=== PATIENT | male | born 1955 | race Two or more races ===

== ENCOUNTER 2019-05-10 00:18 | Inpatient (IN) | payer MEDICAID ==
[~2019-05-10] VITALS: Ht 167.6 cm; Wt 67.4 kg
[2019-05-10] MEDS ORDERED: LISI-661 PO (00:40)
[2019-05-10] MEDS ORDERED: AMLO2.5T4 PO (00:40)
[2019-05-10] MEDS ORDERED: METF-960 PO (00:40)
[2019-05-10] MEDS ORDERED: GABA-531 PO (00:44)
[2019-05-10] MEDS ORDERED: CHLO25 PO (00:44)
[2019-05-10 00:56] LABS: HEMATOCRIT 35.3 % (41-53); HEMOGLOBIN 11.5 g/dL (13.5-17.5); MEAN CORPUSCULAR HEMOGLOBIN 28.1 pg (26.0-34.0); MEAN CORPUSCULAR HGB CONC 32.7 G/dL (31.0-37.0); MEAN CORPUSCULAR VOLUME 86 fL (80-100); PLATELET COUNT (AUTO) 100 K/uL (150-450); RED BLOOD CELL COUNT(AUTO) 4.11 MIL/uL (4.50-5.90); RED CELL DISTRIBUTION WIDTH 14.3 % (11.5-14.5)
[2019-05-10 01:05] LABS: ALANINE AMINOTRANSFERASE 24 U/L (12-78); ALBUMIN 2.7 g/dL (3.4-5.0); ALKALINE PHOSPHATASE 149 U/L (46-116); ANION GAP 19 mmol/L (8-16); ASPARTATE AMINOTRANSFERASE 40 U/L (15-37); BILIRUBIN,TOTAL 0.8 mg/dL (0.1-1.0); CARBON DIOXIDE 18 mmol/L (22-29); CHLORIDE 90 mmol/L (98-107); CREATININE 6.74 mg/dL (0.60-1.30); GLOMERULAR FILTR. RATE CALC 8 mL/min (>60); POTASSIUM 5.8 mmol/L (3.5-5.1); SODIUM SERUM 127 mmol/L (136-145); TOTAL PROTEIN, SERUM 6.6 g/dL (6.4-8.2); UREA NITROGEN, BLOOD 65 mg/dL (7-18)
[2019-05-10 01:07] LABS: GLUCOSE,RANDOM 544 mg/dL (70-110)
[2019-05-10 01:09] LABS: BAND NEUTROPHILS % (MANUAL) 9 % (0-5); LYMPHOCYTES % (MANUAL) 3 % (22-44); MONOCYTES % (MANUAL) 1 % (2-9); SEGMENTED NEUTROPHILS % 87 % (40-70)
[2019-05-10 01:10] LABS: PLATELET MORPHOLOGY COMMENT LARGE PLTS PRESENT
[2019-05-10 01:15] LABS: B-TYPE NATRIURETIC PEPTIDE 378 pg/mL (0-100)
[2019-05-10 01:45] LABS: ACETONE,BLOOD NEGATIVE (NEGATIVE)
[2019-05-10] MEDS ORDERED: INSULIN REGULAR, HUMAN 100 UNITS/ML IVP ONE ×2 (01:45→06:00)
[2019-05-10] MEDS ORDERED: SODIUM CHLORIDE 0.9% 2,000 ML IV ONE (01:45)
[2019-05-10 02:01] LABS: APPEARANCE,URINE CLOUDY (CLEAR); BILIRUBIN,URINE PRELIM. POSITIVE (NEGATIVE); GLUCOSE, URINE (UA) 500 mg/dL (NEGATIVE); KETONES,URINE TRACE mg/dL (NEGATIVE); LEUKOCYTE ESTERASE ,URINE MODERATE (NEGATIVE); NITRATE,URINE NEGATIVE (NEGATIVE); OCCULT BLOOD,URINE LARGE (NEGATIVE); PROTEIN,URINE SEE CONFIRM (NEGATIVE); UROBILINOGEN,URINE 0.2 mg/dL (<=1.0)
[2019-05-10 02:02] LABS: ABG A-A DIFF O2 69.8 mmHg (10-20.0); ABG BASE EXCESS -8.4 mmol/L (-2.0-3.0); ABG CARBOXYHEMOGLOBIN 0.2 % (0.0-1.5); ABG HCO3 18.8 mmol/L (22.0-26.0); ABG METHEMOGLOBIN 0.3 % (0.0-1.5); ABG OXYGEN CONTENT 15.7 mL/dL (15.0-23.0); ABG OXYGEN SATURATION 97.4 % (95.0-98.0); ABG OXYHEMOGLOBIN 96.9 % (94.0-100.0); ABG PCO2 26 mmHg (35-45); ABG PH 7.406 (7.35-7.450); ABG TOTAL HEMOGLOBIN 11.4 G/dL (12.0-18.0); PO2, ARTERIAL BG 98.3 mmHg (79.0-87.0); SOURCE, BLOOD GAS ARTERIAL; TEMPERATURE, FAHRENHEIT, BG 99.7 FAHREN (96.0-98.6)
[2019-05-10 02:03] LABS: SITE, BLOOD GAS LFT RADIAL
[2019-05-10 02:04] LABS: O2 DEVICE,BLOOD GAS CANNULA (ROOM AIR)
[2019-05-10 02:07] LABS: AMPHET/METH SCREEN,URINE NEGATIVE (NEGATIVE); BARBITURATE SCREEN, URINE NEGATIVE (NEGATIVE); BENZODIAZEPINES SCREEN,URINE NEGATIVE (NEGATIVE); CANNABINOID SCREEN,URINE NEGATIVE (NEGATIVE); COCAINE SCREEN,URINE NEGATIVE (NEGATIVE); METHADONE SCREEN, URINE NEGATIVE (NEGATIVE); OPIATE SCREEN,URINE NEGATIVE (NEGATIVE); PHENCYCLIDINE SCREEN,URINE NEGATIVE (NEGATIVE)
[2019-05-10 02:08] LABS: BACTERIA,URINE Moderate /HPF (None Seen); WBC,URINE 51-100 /HPF (0-5)
[2019-05-10 02:09] LABS: SQUAMOUS EPITHELIAL CELL,UR Rare /LPF (None Seen); SULFOSALICYLIC ACID,URINE 1+ (Negative)
[2019-05-10 02:28] LABS: LACTIC ACID 6.8 mmol/L (0.4-2.0)
[2019-05-10] MEDS ORDERED: CefTRIAXone 1 GM/DEXTROSE 50 ML IV ONE (02:45)
[2019-05-10] MEDS ORDERED: ONDANSETRON HCL 4 MG/2 ML VIAL IVP PRN ×2 (03:00→07:15)
[2019-05-10] MEDS ORDERED: 0.9% SODIUM CHLORIDE 10 ML SYRINGE IVP PRN (03:00)
[2019-05-10 03:45] LABS: GLUCOSE,POINT OF CARE 474 MG/DL (70-110)
[2019-05-10] MEDS: ACETAMINOPHEN 325 MG TABLET PO PRN ×2 (04:25→09:58)
[2019-05-10] MEDS ORDERED: SODIUM CHLORIDE 0.9% 1,000 ML IV ONE ×2 (05:00→07:15)
[2019-05-10] MEDS ORDERED: AZTREONAM 1 GM in DEXTROSE 5%-WATER 50 ML IV ONE (05:00)
[2019-05-10] MEDS ORDERED: ACETAMINOPHEN 500 MG TABLET PO ONE (05:15)
[2019-05-10 06:02] LABS: CREATININE 6.01 mg/dL (0.60-1.30); POTASSIUM 5.2 mmol/L (3.5-5.1)
[2019-05-10 06:06] LABS: GLUCOSE,POINT OF CARE 432 MG/DL (70-110)
[2019-05-10] MEDS ORDERED: INSULIN LISPRO 100 UNITS/ML SQ PRN ×2 (07:15→12:30)
[2019-05-10] MEDS ORDERED: ZOLPIDEM TARTRATE 5 MG TABLET PO PRN (07:15)
[2019-05-10] MEDS ORDERED: DEXTROSE 50%-WATER 25 GM/50 ML SYRINGE IVP PRN ×3 (07:15→15:45)
[2019-05-10] MEDS ORDERED: ACETAMINOPHEN 325 MG TABLET PO PRN (07:15)
[2019-05-10] MEDS ORDERED: SODIUM POLYSTYRENE SULFONATE 15 GM/60 ML SUSPENSION BOTTLE PO ONE (07:15)
[2019-05-10] MEDS ORDERED: MAGNESIUM HYDROXIDE SUSPENSION 30 ML UDCUP PO PRN (07:15)
[2019-05-10] MEDS ORDERED: BISACODYL 10 MG RECTAL RECTAL SUPPOSITORY PR PRN (07:15)
[2019-05-10] MEDS ORDERED: HydrALAZINE HCL 20 MG/ML VIAL IVP PRN (07:15)
[2019-05-10] MEDS ORDERED: HYDROCODONE/ACETAMINOPHEN 5-325 MG TABLET PO PRN (07:15)
[2019-05-10 07:30] LABS: GLUCOSE,POINT OF CARE 396 MG/DL (70-110)
[2019-05-10] MEDS: HEPARIN SODIUM,PORCINE 5,000 UNITS/ML VIAL SQ SCH ×2 (08:00→16:00)
[2019-05-10] MEDS ORDERED: CARVEDILOL 6.25 MG TABLET PO SCH (09:00)
[2019-05-10 09:17] LABS: ABG A-A DIFF O2 129.1 mmHg (10-20.0); ABG BASE EXCESS -6.2 mmol/L (-2.0-3.0); ABG CARBOXYHEMOGLOBIN 0.2 % (0.0-1.5); ABG HCO3 20.3 mmol/L (22.0-26.0); ABG METHEMOGLOBIN 0.2 % (0.0-1.5); ABG OXYGEN CONTENT 15.9 mL/dL (15.0-23.0); ABG OXYGEN SATURATION 92.5 % (95.0-98.0); ABG OXYHEMOGLOBIN 92.1 % (94.0-100.0); ABG PCO2 29 mmHg (35-45); ABG PH 7.413 (7.35-7.450); ABG TOTAL HEMOGLOBIN 12.3 G/dL (12.0-18.0); PO2, ARTERIAL BG 64.2 mmHg (79.0-87.0); SOURCE, BLOOD GAS ARTERIAL; TEMPERATURE, FAHRENHEIT, BG 99.5 FAHREN (96.0-98.6)
[2019-05-10] MEDS: PANTOPRAZOLE SODIUM 40 MG DR TABLET PO SCH (09:19)
[2019-05-10] MEDS: DOCUSATE SODIUM 100 MG CAPSULE PO SCH ×2 (09:22→21:00)
[2019-05-10] MEDS: INSULIN GLARGINE,HUM.REC.ANLOG 100 UNITS/ML SQ SCH ×2 (09:22→21:26)
[2019-05-10 09:24] LABS: O2 DEVICE,BLOOD GAS CANNULA (ROOM AIR); SITE, BLOOD GAS RT RADIAL
[2019-05-10 09:56] LABS: GLUCOSE,POINT OF CARE 351 MG/DL (70-110)
[2019-05-10 12:00] VITALS: BP 111/70
[2019-05-10] MEDS ORDERED: LEVOFLOXACIN 750 MG/D5% WATER 150 ML IV ONE (15:15)
[2019-05-10] MEDS ORDERED: POTASSIUM CHLORIDE 40 MEQ in SODIUM CHLORIDE 0.45% 1,000 ML IV PRN (15:43)
[2019-05-10] MEDS ORDERED: DEXTROSE 5%-0.45% SODIUM CHL 1,000 ML IV PRN (15:43)
[2019-05-10] MEDS ORDERED: SODIUM CHLORIDE 0.9% 1,000 ML IV SCH (15:43)
[2019-05-10] MEDS ORDERED: POTASSIUM CHL 20 MEQ/0.45% NS 1,000 ML IV PRN (15:43)
[2019-05-10] MEDS ORDERED: INSULIN REGULAR, HUMAN 100 UNITS/ML IVP PRN (15:45)
[2019-05-10 16:00] VITALS: BP 102/72
[2019-05-10] MEDS ORDERED: SODIUM CHLORIDE 0.9% 250 ML IV ONE (16:08)
[2019-05-10] MEDS: INSULIN REGULAR, HUMAN 100 UNITS in SODIUM CHLORIDE 0.9% 99 ML IV PRN ×2 (16:22)
[2019-05-10 16:31] LABS: HEMATOCRIT 31.1 % (41-53); HEMOGLOBIN 10.3 g/dL (13.5-17.5); MEAN CORPUSCULAR HGB CONC 33.1 G/dL (31.0-37.0); MEAN CORPUSCULAR VOLUME 85 fL (80-100); RED BLOOD CELL COUNT(AUTO) 3.68 MIL/uL (4.50-5.90); RED CELL DISTRIBUTION WIDTH 14.7 % (11.5-14.5)
[2019-05-10 16:34] LABS: CREATININE 6.29 mg/dL (0.60-1.30); POTASSIUM 4.8 mmol/L (3.5-5.1)
[2019-05-10 16:42] LABS: BILIRUBIN,TOTAL 0.7 mg/dL (0.1-1.0); TOTAL PROTEIN, SERUM 5.7 g/dL (6.4-8.2)
[2019-05-10 17:19] LABS: PLATELET COUNT (AUTO) 49 K/uL (150-450)
[2019-05-10 17:24] LABS: BAND NEUTROPHILS % (MANUAL) 15 % (0-5); LYMPHOCYTES % (MANUAL) 5 % (22-44); MONOCYTES % (MANUAL) 3 % (2-9); PLATELET MORPHOLOGY COMMENT DECREASED; SEGMENTED NEUTROPHILS % 77 % (40-70)
[2019-05-10 20:00] VITALS: BP 92/62
[2019-05-10 20:59] LABS: CALCIUM, TOTAL 7.8 mg/dL (8.8-10.5); CREATININE 6.18 mg/dL (0.60-1.30); POTASSIUM 4.4 mmol/L (3.5-5.1)
[2019-05-10 21:55] LABS: GLUCOSE,POINT OF CARE 281 MG/DL (70-110)
[2019-05-10 21:55] LABS: GLUCOSE,POINT OF CARE 343 MG/DL (70-110)
[2019-05-10 21:55] LABS: GLUCOSE,POINT OF CARE 232 MG/DL (70-110)
[2019-05-10 21:55] LABS: GLUCOSE,POINT OF CARE 361 MG/DL (70-110)
[2019-05-10 21:55] LABS: GLUCOSE,POINT OF CARE 301 MG/DL (70-110)
[2019-05-10] MEDS: SODIUM CHLORIDE 0.45% 1,000 ML IV PRN (22:31)
[2019-05-11] VITALS: BP 90/58
[2019-05-11] MEDS: HEPARIN SODIUM,PORCINE 5,000 UNITS/ML VIAL SQ SCH ×4 (00:50→23:20)
[2019-05-11 01:10] LABS: GLUCOSE,POINT OF CARE 205 MG/DL (70-110)
[2019-05-11 01:10] LABS: GLUCOSE,POINT OF CARE 200 MG/DL (70-110)
[2019-05-11 01:10] LABS: GLUCOSE,POINT OF CARE 208 MG/DL (70-110)
[2019-05-11 01:10] LABS: GLUCOSE,POINT OF CARE 201 MG/DL (70-110)
[2019-05-11 01:14] LABS: CALCIUM, TOTAL 7.6 mg/dL (8.8-10.5); CREATININE 5.98 mg/dL (0.60-1.30); POTASSIUM 4.1 mmol/L (3.5-5.1)
[2019-05-11] MEDS: CefTRIAXone 1 GM/DEXTROSE 50 ML IV SCH (03:15)
[2019-05-11 04:00] VITALS: BP 101/67
[2019-05-11 04:58] LABS: HEMATOCRIT 29.6 % (41-53); MEAN CORPUSCULAR HEMOGLOBIN 28.6 pg (26.0-34.0); MEAN CORPUSCULAR HGB CONC 33.9 G/dL (31.0-37.0); MEAN CORPUSCULAR VOLUME 84 fL (80-100); PLATELET COUNT (AUTO) 49 K/uL (150-450); RED BLOOD CELL COUNT(AUTO) 3.51 MIL/uL (4.50-5.90); RED CELL DISTRIBUTION WIDTH 14.7 % (11.5-14.5)
[2019-05-11 05:04] LABS: ALBUMIN 1.7 g/dL (3.4-5.0); BILIRUBIN,TOTAL 0.6 mg/dL (0.1-1.0); CALCIUM, TOTAL 7.4 mg/dL (8.8-10.5); CREATININE 5.8 mg/dL (0.60-1.30); MAGNESIUM 1.7 mg/dL (1.80-2.40); POTASSIUM 3.7 mmol/L (3.5-5.1); TOTAL PROTEIN, SERUM 5.4 g/dL (6.4-8.2)
[2019-05-11 05:11] LABS: BAND NEUTROPHILS % (MANUAL) 9 % (0-5); LYMPHOCYTES % (MANUAL) 6 % (22-44); MONOCYTES % (MANUAL) 3 % (2-9); SEGMENTED NEUTROPHILS % 82 % (40-70)
[2019-05-11 05:12] LABS: PLATELET MORPHOLOGY COMMENT LARGE PLTS PRESENT
[2019-05-11] MEDS: INSULIN REGULAR, HUMAN 100 UNITS in SODIUM CHLORIDE 0.9% 99 ML IV PRN ×2 (05:15)
[2019-05-11 05:22] LABS: PHOSPHORUS 1.1 mg/dL (2.5-4.9)
[2019-05-11 07:01] LABS: GLUCOSE,POINT OF CARE 147 MG/DL (70-110)
[2019-05-11 07:01] LABS: GLUCOSE,POINT OF CARE 135 MG/DL (70-110)
[2019-05-11 07:01] LABS: GLUCOSE,POINT OF CARE 159 MG/DL (70-110)
[2019-05-11 07:01] LABS: GLUCOSE,POINT OF CARE 183 MG/DL (70-110)
[2019-05-11 07:01] LABS: GLUCOSE,POINT OF CARE 175 MG/DL (70-110)
[2019-05-11] MEDS: SODIUM CHLORIDE 0.45% 1,000 ML IV PRN (07:30)
[2019-05-11] MEDS ORDERED: SODIUM PHOS,M-BASIC-D-BASIC 20 MEQ in DEXTROSE 5%-WATER 100 ML IV ONE (07:45)
[2019-05-11 08:00] VITALS: BP 151/84
[2019-05-11 08:12] LABS: ABG A-A DIFF O2 78.1 mmHg (10-20.0); ABG BASE EXCESS -8.3 mmol/L (-2.0-3.0); ABG CARBOXYHEMOGLOBIN 1.4 % (0.0-1.5); ABG HCO3 18.2 mmol/L (22.0-26.0); ABG METHEMOGLOBIN 0.3 % (0.0-1.5); ABG OXYGEN CONTENT 11.9 mL/dL (15.0-23.0); ABG OXYHEMOGLOBIN 70.8 % (94.0-100.0); ABG PCO2 30 mmHg (35-45); ABG PH 7.374 (7.35-7.450); SOURCE, BLOOD GAS ARTERIAL; TEMPERATURE, FAHRENHEIT, BG 98.6 FAHREN (96.0-98.6)
[2019-05-11 08:21] LABS: PO2, ARTERIAL BG 36.2 mmHg (79.0-87.0)
[2019-05-11 08:22] LABS: O2 DEVICE,BLOOD GAS ROOM AIR (ROOM AIR); SITE, BLOOD GAS RT RADIAL
[2019-05-11] MEDS: PANTOPRAZOLE SODIUM 40 MG DR TABLET PO SCH (09:00)
[2019-05-11] MEDS: INSULIN GLARGINE,HUM.REC.ANLOG 100 UNITS/ML SQ SCH ×2 (09:00→20:23)
[2019-05-11] MEDS: DOCUSATE SODIUM 100 MG CAPSULE PO SCH ×2 (09:00→20:23)
[2019-05-11 09:05] LABS: GLUCOSE,POINT OF CARE 59 MG/DL (70-110)
[2019-05-11 09:05] LABS: GLUCOSE,POINT OF CARE 119 MG/DL (70-110)
[2019-05-11 09:05] LABS: GLUCOSE,POINT OF CARE 186 MG/DL (70-110)
[2019-05-11] MEDS ORDERED: DEXTROSE 50%-WATER 25 GM/50 ML SYRINGE IVP PRN (09:45)
[2019-05-11 12:00] VITALS: BP 99/64
[2019-05-11 16:00] VITALS: BP 96/64
[2019-05-11] MEDS: MetroNIDAZOLE 500 MG/NACL 100 ML IV SCH ×2 (16:04→21:23)
[2019-05-11 20:00] VITALS: BP 141/90
[2019-05-11 20:06] LABS: GLUCOSE,POINT OF CARE 161 MG/DL (70-110)
[2019-05-11 20:06] LABS: GLUCOSE,POINT OF CARE 120 MG/DL (70-110)
[2019-05-11] MEDS: INSULIN LISPRO 100 UNITS/ML SQ PRN (20:24)
[2019-05-11 21:20] LABS: GLUCOSE,POINT OF CARE 183 MG/DL (70-110)
[2019-05-11] MEDS: IPRATROPIUM BROMIDE 0.5 MG/2.5 ML NEB SOLUTION NEB PRN (22:17)
[2019-05-11] MEDS: ALBUTEROL SULFATE 2.5 MG/0.5 ML NEB SOLUTION NEB PRN (22:17)
[2019-05-12] VITALS (8 sets, daily range): BP systolic 108–132; BP diastolic 68–88
[2019-05-12] MEDS: ALBUTEROL SULFATE 2.5 MG/0.5 ML NEB SOLUTION NEB PRN ×3 (00:41→19:06)
[2019-05-12] MEDS: IPRATROPIUM BROMIDE 0.5 MG/2.5 ML NEB SOLUTION NEB PRN ×3 (00:41→19:06)
[2019-05-12] MEDS: MORPHINE SULFATE 2 MG/ML SYRINGE IVP PRN ×2 (00:44→10:29)
[2019-05-12 01:18] LABS: ABG A-A DIFF O2 216.1 mmHg (10-20.0); ABG BASE EXCESS -8.9 mmol/L (-2.0-3.0); ABG CARBOXYHEMOGLOBIN 0.9 % (0.0-1.5); ABG HCO3 18.9 mmol/L (22.0-26.0); ABG METHEMOGLOBIN 0.3 % (0.0-1.5); ABG OXYGEN CONTENT 17.6 mL/dL (15.0-23.0); ABG OXYGEN SATURATION 95.2 % (95.0-98.0); ABG OXYHEMOGLOBIN 94.1 % (94.0-100.0); ABG PCO2 23 mmHg (35-45); ABG PH 7.444 (7.35-7.450); ABG TOTAL HEMOGLOBIN 13.3 G/dL (12.0-18.0); PO2, ARTERIAL BG 71.5 mmHg (79.0-87.0); SOURCE, BLOOD GAS ARTERIAL; TEMPERATURE, FAHRENHEIT, BG 99.1 FAHREN (96.0-98.6)
[2019-05-12 01:19] LABS: SITE, BLOOD GAS RT RADIAL
[2019-05-12 01:20] LABS: O2 DEVICE,BLOOD GAS AEROSOL MASK (ROOM AIR)
[2019-05-12] MEDS: CefTRIAXone 1 GM/DEXTROSE 50 ML IV SCH (02:08)
[2019-05-12 02:25] LABS: GLUCOSE,POINT OF CARE 167 MG/DL (70-110)
[2019-05-12 05:14] LABS: HEMOGLOBIN 9.5 g/dL (13.5-17.5); MEAN CORPUSCULAR HEMOGLOBIN 27.9 pg (26.0-34.0); MEAN CORPUSCULAR HGB CONC 32.7 G/dL (31.0-37.0); MEAN CORPUSCULAR VOLUME 85 fL (80-100); PLATELET COUNT (AUTO) 32 K/uL (150-450); RED BLOOD CELL COUNT(AUTO) 3.41 MIL/uL (4.50-5.90); RED CELL DISTRIBUTION WIDTH 14.7 % (11.5-14.5)
[2019-05-12] MEDS: MetroNIDAZOLE 500 MG/NACL 100 ML IV SCH ×3 (05:16→21:57)
[2019-05-12] MEDS ORDERED: SODIUM CHLORIDE 0.9% 250 ML IV ONE ×3 (05:17→15:05)
[2019-05-12 05:18] LABS: CALCIUM, TOTAL 7.4 mg/dL (8.8-10.5); CREATININE 6.32 mg/dL (0.60-1.30); MAGNESIUM 1.5 mg/dL (1.80-2.40); PHOSPHORUS 1.9 mg/dL (2.5-4.9); POTASSIUM 4.1 mmol/L (3.5-5.1)
[2019-05-12 05:36] LABS: BAND NEUTROPHILS % (MANUAL) 5 % (0-5); LYMPHOCYTES % (MANUAL) 5 % (22-44); MONOCYTES % (MANUAL) 4 % (2-9); SEGMENTED NEUTROPHILS % 86 % (40-70)
[2019-05-12] MEDS: INSULIN LISPRO 100 UNITS/ML SQ PRN ×4 (06:01→20:57)
[2019-05-12 06:11] LABS: GLUCOSE,POINT OF CARE 174 MG/DL (70-110)
[2019-05-12] MEDS: HEPARIN SODIUM,PORCINE 5,000 UNITS/ML VIAL SQ SCH ×4 (08:00→23:53)
[2019-05-12] MEDS ORDERED: SODIUM BICARBONATE 75 MEQ in SODIUM CHLORIDE 0.45% 1,000 ML IV SCH (08:06)
[2019-05-12] MEDS ORDERED: MAGNESIUM SULFATE 1 GM in DEXTROSE 5%-WATER 50 ML IV ONE (08:15)
[2019-05-12] MEDS ORDERED: SODIUM PHOS,M-BASIC-D-BASIC 20 MEQ in DEXTROSE 5%-WATER 100 ML IV ONE (08:15)
[2019-05-12] MEDS: DOCUSATE SODIUM 100 MG CAPSULE PO SCH ×2 (09:11→20:55)
[2019-05-12] MEDS: PANTOPRAZOLE SODIUM 40 MG DR TABLET PO SCH (09:11)
[2019-05-12] MEDS: INSULIN GLARGINE,HUM.REC.ANLOG 100 UNITS/ML SQ SCH ×2 (09:13→20:57)
[2019-05-12] MEDS: BUDESONIDE 0.5 MG/2 ML NEB SOLUTION NEB SCH ×2 (09:20→19:06)
[2019-05-12 13:04] LABS: CALCIUM, TOTAL 7.5 mg/dL (8.8-10.5); CREATININE 6.12 mg/dL (0.60-1.30); POTASSIUM 4.2 mmol/L (3.5-5.1)
[2019-05-12 13:44] LABS: ABG A-A DIFF O2 138.1 mmHg (10-20.0); ABG BASE EXCESS -7.9 mmol/L (-2.0-3.0); ABG CARBOXYHEMOGLOBIN 0.5 % (0.0-1.5); ABG HCO3 19.1 mmol/L (22.0-26.0); ABG METHEMOGLOBIN 0.3 % (0.0-1.5); ABG OXYGEN CONTENT 15.7 mL/dL (15.0-23.0); ABG OXYGEN SATURATION 96.6 % (95.0-98.0); ABG OXYHEMOGLOBIN 95.8 % (94.0-100.0); ABG PCO2 27 mmHg (35-45); ABG PH 7.407 (7.35-7.450); ABG TOTAL HEMOGLOBIN 11.6 G/dL (12.0-18.0); PO2, ARTERIAL BG 86.8 mmHg (79.0-87.0); SOURCE, BLOOD GAS ARTERIAL; TEMPERATURE, FAHRENHEIT, BG 98.9 FAHREN (96.0-98.6)
[2019-05-12 13:46] LABS: O2 DEVICE,BLOOD GAS CANNULA (ROOM AIR); SITE, BLOOD GAS LFT RADIAL
[2019-05-12] MEDS ORDERED: FUROSEMIDE 40 MG/4 ML VIAL IVP ONE (15:45)
[2019-05-12] MEDS ORDERED: LEVOFLOXACIN 500 MG/D5% WATER 100 ML IV SCH (16:00)
[2019-05-12 19:35] LABS: GLUCOSE,POINT OF CARE 226 MG/DL (70-110)
[2019-05-12 19:35] LABS: GLUCOSE,POINT OF CARE 228 MG/DL (70-110)
[2019-05-13] VITALS: BP 127/81
[2019-05-13 01:10] LABS: GLUCOSE,POINT OF CARE 192 MG/DL (70-110)
[2019-05-13] MEDS: CefTRIAXone 1 GM/DEXTROSE 50 ML IV SCH (03:53)
[2019-05-13 04:00] VITALS: BP 146/87
[2019-05-13 05:20] LABS: GLUCOSE,POINT OF CARE 152 MG/DL (70-110)
[2019-05-13 05:23] LABS: HEMATOCRIT 31.6 % (41-53); HEMOGLOBIN 10.3 g/dL (13.5-17.5); MEAN CORPUSCULAR HEMOGLOBIN 27.8 pg (26.0-34.0); MEAN CORPUSCULAR HGB CONC 32.7 G/dL (31.0-37.0); MEAN CORPUSCULAR VOLUME 85 fL (80-100); PLATELET COUNT (AUTO) 42 K/uL (150-450); RED BLOOD CELL COUNT(AUTO) 3.71 MIL/uL (4.50-5.90); RED CELL DISTRIBUTION WIDTH 15.1 % (11.5-14.5)
[2019-05-13 05:45] LABS: CALCIUM, TOTAL 7.8 mg/dL (8.8-10.5); CREATININE 6.05 mg/dL (0.60-1.30)
[2019-05-13] MEDS: MetroNIDAZOLE 500 MG/NACL 100 ML IV SCH ×2 (05:45→14:00)
[2019-05-13] MEDS: INSULIN LISPRO 100 UNITS/ML SQ PRN ×2 (05:47→05:54)
[2019-05-13 08:26] LABS: BAND NEUTROPHILS % (MANUAL) 4 % (0-5); LYMPHOCYTES % (MANUAL) 6 % (22-44); MONOCYTES % (MANUAL) 4 % (2-9); SEGMENTED NEUTROPHILS % 86 % (40-70)
[2019-05-13] MEDS: BUDESONIDE 0.5 MG/2 ML NEB SOLUTION NEB SCH (08:33)
[2019-05-13] MEDS: DOCUSATE SODIUM 100 MG CAPSULE PO SCH (09:00)
[2019-05-13] MEDS: HEPARIN SODIUM,PORCINE 5,000 UNITS/ML VIAL SQ SCH (09:34)
[2019-05-13] MEDS: PANTOPRAZOLE SODIUM 40 MG DR TABLET PO SCH (09:34)
[2019-05-13] MEDS: INSULIN GLARGINE,HUM.REC.ANLOG 100 UNITS/ML SQ SCH (09:35)
[2019-05-13] MEDS: IPRATROPIUM BROMIDE 0.5 MG/2.5 ML NEB SOLUTION NEB PRN (10:31)
[2019-05-13] MEDS: ALBUTEROL SULFATE 2.5 MG/0.5 ML NEB SOLUTION NEB PRN (10:31)
[2019-05-13 10:44] LABS: ABG CARBOXYHEMOGLOBIN 0.9 % (0.0-1.5); ABG HCO3 18.1 mmol/L (22.0-26.0); ABG METHEMOGLOBIN 0.3 % (0.0-1.5); ABG OXYGEN CONTENT 16.1 mL/dL (15.0-23.0); ABG OXYHEMOGLOBIN 89.9 % (94.0-100.0); ABG PCO2 30 mmHg (35-45); ABG PH 7.354 (7.35-7.450); ABG TOTAL HEMOGLOBIN 12.7 G/dL (12.0-18.0); PO2, ARTERIAL BG 62.7 mmHg (79.0-87.0); SOURCE, BLOOD GAS ARTERIAL; TEMPERATURE, FAHRENHEIT, BG 98.5 FAHREN (96.0-98.6)
[2019-05-13 10:45] LABS: O2 DEVICE,BLOOD GAS CANNULA (ROOM AIR); SITE, BLOOD GAS RT RADIAL
[2019-05-13] MEDS ORDERED: SODIUM CHLORIDE 0.9% 1,000 ML IV SCH (12:38)
== END 2019-05-13 14:10 | disposition left against medical advice (07) | DRG 720 ==
LOC: EMS 00:20 → 5S 06:00 → ICU 11:11
PROVIDERS: ADMIT Internal Medicine; ATTEND Internal Medicine
DX: A41.51 Sepsis due to Escherichia coli [E. coli] (principal); N17.0 Acute kidney failure with tubular necrosis; J96.01 Acute respiratory failure with hypoxia; J69.0 Pneumonitis due to inhalation of food and vomit; G93.41 Metabolic encephalopathy; E11.10 Type 2 diabetes mellitus with ketoacidosis without coma; N39.0 Urinary tract infection, site not specified; E87.5 Hyperkalemia; E87.1 Hypo-osmolality and hyponatremia; N18.9 Chronic kidney disease, unspecified; D64.9 Anemia, unspecified; E11.22 Type 2 diabetes mellitus with diabetic chronic kidney disease; B96.89 Other specified bacterial agents as the cause of diseases classified elsewhere; I49.9 Cardiac arrhythmia, unspecified; I12.9 Hypertensive chronic kidney disease with stage 1 through stage 4 chronic kidney disease, or unspecified chronic kidney disease; R65.20 Severe sepsis without septic shock; Z79.84 Long term (current) use of oral hypoglycemic drugs; Z79.899 Other long term (current) drug therapy; Z87.891 Personal history of nicotine dependence; Z88.8 Allergy status to other drugs, medicaments and biological substances; Z53.21 Procedure and treatment not carried out due to patient leaving prior to being seen by health care provider
CPT/HCPCS: 36600; 70450; 71250; 74019; 76700; 82805; 83605; 83735; 84100; 87040; 87081; 87086; 87205; 93005; 93306; 94640; 99291; G0378; G0480; J0696; J1644; J1815; J1940; J1956; J2270; J3475; J3490; J7030; J7050; J7060